=== PATIENT | male | born 1975 | race Hispanic/Latino ===

== ENCOUNTER → 2019-09-02 | Outpatient (CLI) | payer OTHER | END | disposition home or self-care (01) | LOC: SHCH 15:06 | PROVIDERS: ATTEND Internal Medicine Cardiovascular Disease | DX: Z09 Encounter for follow-up examination after completed treatment for conditions other than malignant neoplasm (principal) | CPT/HCPCS: 93971 ==

== ENCOUNTER → 2019-10-28 | Outpatient (CLI) | payer OTHER | END | disposition home or self-care (01) | LOC: SHCH 08:55 | PROVIDERS: ATTEND Internal Medicine Cardiovascular Disease | DX: I82.4Y2 Acute embolism and thrombosis of unspecified deep veins of left proximal lower extremity (principal) | CPT/HCPCS: 93971 ==

== ENCOUNTER → 2020-09-28 | Outpatient (CLI) | payer OTHER | END | disposition home or self-care (01) | LOC: SHCH 13:05 | PROVIDERS: ATTEND Internal Medicine Cardiovascular Disease | DX: Z09 Encounter for follow-up examination after completed treatment for conditions other than malignant neoplasm (principal); I87.2 Venous insufficiency (chronic) (peripheral) | CPT/HCPCS: 93971 ==

== ENCOUNTER 2023-11-21 06:59 | Day surgery (SDC) | payer OTHER ==
[2023-11-21 07:20] VITALS: BP 143/85; PULSE 64; RESP 16
[2023-11-21] MEDS ORDERED: 0.9%NACL 1000ML 1,000 ML IV ONE (07:24)
[2023-11-21 07:50] VITALS: BP 138/84; PULSE 68; RESP 16
[2023-11-21] MEDS ORDERED: COSYNTROPIN 0.25 MG VIAL IVP ONE (08:00)
[2023-11-21 09:10] VITALS: BP 139/90; PULSE 72; RESP 16
== END 2023-11-21 09:15 | disposition home or self-care (01) ==
LOC: DAH 06:59
PROVIDERS: ATTEND Internal Medicine Endocrinology, Diabetes & Metabolism
DX: E27.9 Disorder of adrenal gland, unspecified (principal)
CPT/HCPCS: 82533 ×3; 36415; 96374; J7030; J0834; A4215; A4223; A4221; A4663; A4216; A4606